=== PATIENT | male | born 1945 | race Caucasian/White ===

== ENCOUNTER → 2020-07-11 10:34 | Outpatient (CLI) | payer OTHER, SELFPAY ==
--- NOTE | 2020-07-11 10:36 | ECHOCS_ITS ---
Reason For Study: ISCHEMIC HEART DISEASE Procedure This was a 2D Doppler, Color Flow transthoracic echocardiogram. The exam was of poor technical quality due to diminished acoustic windows. The study was technically limited. Contrast injection was performed. Exam performed in department. Left Ventricle Normal LV size. Segmental dysfunction with preserved ejection fraction (see wall motion). The estimated ejection fraction is 55 %. No evidence for diastolic dysfunction. Infero-Basal: Hypokinetic. Mid-Lateral : Hypokinetic. Mid-Posterior: Hypokinetic. Mid-Inferior: Hypokinetic. Mid- inferoseptal : Hypokinetic. Mid-anteroseptal : Hypokinetic. Inferior Celina : Hypokinetic. Lateral Celina : Hypokinetic. Septal Celina : Hypokinetic. Apical wall motion abnormality may reflect pacemaker activation. Right Ventricle Normal RV size. ICD or pacer leads identified within the right ventricle. Normal systolic function. Atria Normal left atrium. Normal right atrium. ICD or pacer leads identified within the right atrium. No doppler evidence for ASD. Mitral Valve There is no mitral annular calcification. Mitral valve not well visualized. Tricuspid Valve The tricuspid valve is not well visualized. Trivial tricuspid valve insufficiency. Right ventricular systolic pressure estimated to be 23 mmHg. Aortic Valve The aortic valve is not well visualized. Pulmonic Valve The pulmonic valve is not well visualized. Great Vessels The aortic root is not well visualized. Pericardium/Pleural Small pericardial effusion. There are no echocardiographic indications of cardiac tamponade. Medication 22 gauge I.V. with prn adaptor inserted into right arm. Diluted definity 4ml given slow IV push to enhance endocardial definition. MMode/2D Measurements & Calculations LVIDd: 5.3 cm IVSd: 0.92 cm LVIDs: 4.0 cm LVPWd: 0.94 cm RVDd: 3.0 cm FS: 23.3 % Time Measurements MV dec time: 0.28 sec Doppler Measurements & Calculations MV E max caleb: 52.3 cm/sec Lat Peak E' Caleb: 5.7 cm/sec Med Peak E' Caleb: 4.8 cm/sec MV A max caleb: 78.6 cm/sec E/E' lat: 9.1 E/E' med: 10.8 MV E/A: 0.67 Ao V2 max: 146.4 cm/sec AI max caleb: 395.8 cm/sec LV V1 max: 91.9 cm/sec Ao max P.6 mmHg AI max P.7 mmHg LV V1 max P.4 mmHg AI dec slope: 101.5 cm/sec2 AI P1/2t: 1142 msec PA V2 max: 109.6 cm/sec TR max caleb: 224.2 cm/sec TR max P.1 mmHg ECHO/Echo Complete W/ Contrast Interpretation Summary The study was technically limited. Contrast injection was performed. Segmental dysfunction with preserved ejection fraction (see wall motion). The estimated ejection fraction is 55 %. Apical wall motion abnormality may reflect pacemaker activation. Trivial tricuspid valve insufficiency. Small pericardial effusion. There are no echocardiographic indications of cardiac tamponade. Right ventricular systolic pressure estimated to be 23 mmHg. No evidence for diastolic dysfunction. ICD or pacer leads identified within the right atrium ICD or pacer leads identified within the right ventricle. Comment: a) 2D echocardiographic images demonstrate findings compatible with pericardial thickening, however, a pericardial mass measuring approximately 2.0 cm in diameter near the left kassandra tricular apical area cannot be excluded. b) consider further evaluation with radiologic studies such as chest CT scan if clinically indicated. Ordering Physician: Ion Camp Referring Physician: [place], [place] Performed By: Alysa Salgado, KRISTOFER, RVT
== END ==
PROVIDERS: Referring Provider Orthopaedic Surgery; Visit Provider Orthopaedic Surgery
DX: I25.9 Chronic ischemic heart disease, unspecified (principal)
CPT/HCPCS: 93306; Q9957; A4216; C8929